=== PATIENT | female | born 1990 | race Caucasian/White ===

== ENCOUNTER 2023-02-06 15:43 | Inpatient (IN) | payer MEDICAID ==
[~2023-02-06] VITALS: Ht 162.6 cm; Wt 84.8 kg
[2023-02-06 16:13] VITALS: BP 125/71; PULSE 73; RESP 18; TEMP 98.2; O2SAT 99
[2023-02-06 16:36] VITALS: O2SAT 99
[2023-02-06] MEDS ORDERED: MORPHINE SULFATE 4 MG/ML SYR IVP ONE ×2 (17:40→22:40)
[2023-02-06 18:24] LABS: BASOPHILS % (AUTO) 0.5 % (0.0-2.0); EOSINOPHILS # (AUTO) 0.1 K/uL (0-0.4); EOSINOPHILS % (AUTO) 1.2 % (0.0-4.0); HEMATOCRIT 36.7 % (36-48); HEMOGLOBIN 12.2 g/dL (12.0-16.0); LYMPHOCYTES # (AUTO) 1.6 K/uL (2.5-16.5); LYMPHOCYTES % (AUTO) 27.5 % (20.5-51.1); MEAN CORPUSCULAR HEMOGLOBIN 27 pg (27-31); MEAN CORPUSCULAR HGB CONC 33 g/dL (33-37); MEAN CORPUSCULAR VOLUME 82.1 fL (80-94); MONOCYTES # (AUTO) 0.5 K/uL (0.8-1.0); MONOCYTES % (AUTO) 7.9 % (1.7-9.3); NEUTROPHILS # (AUTO) 3.7 K/uL (1.8-7.7); NEUTROPHILS % (AUTO) 62.9 % (42.2-75.2); PLATELET COUNT (AUTO) 273 K/uL (140-450); RED BLOOD CELL COUNT(AUTO) 4.47 MIL/uL (4.20-5.40); RED CELL DISTRIBUTION WIDTH 13.8 % (11.6-13.7); WHITE BLOOD COUNT (AUTO) 5.9 K/uL (4.8-10.8)
[2023-02-06 18:38] LABS: ANION GAP 14.3 (8-16); CALCIUM 8.3 mg/dL (8.5-10.1); CARBON DIOXIDE 25.6 mmol/L (21-32); CREATININE 0.8 mg/dL (0.6-1.3); POTASSIUM 3.9 mmol/L (3.5-5.1); TOTAL BILIRUBIN 0.2 mg/dL (0.0-1.0); TOTAL PROTEIN, SERUM 6.9 g/dL (6.4-8.2)
[2023-02-06 18:39] VITALS: O2SAT 99
[2023-02-06 18:42] LABS: LACTIC ACID 0.9 mmol/L (0.4-2.0)
[2023-02-06 20:59] VITALS: O2SAT 99
[2023-02-06] MEDS ORDERED: KETOROLAC 30 MG/ML VIAL IVP ONE (22:40)
[2023-02-06] MEDS ORDERED: ONDANSETRON 4 MG/2 ML VIAL IVP ONE (23:20)
[2023-02-06] MEDS ORDERED: VANCOMYCIN PER PHARMACY MC PRN (23:40)
[2023-02-07 01:15] VITALS: BP 115/70; PULSE 69; RESP 18; TEMP 96.8; O2SAT 96
[2023-02-07 04:00] VITALS: BP 95/44; PULSE 110; PULSE 64; RESP 18; TEMP 96.8; O2SAT 98
[2023-02-07] MEDS: PIPERACILLIN/TAZOBACTAM 4.5 GM in DEXTROSE 5% 100 ML IV SCH ×3 (05:00→21:07)
[2023-02-07] MEDS: PIPERACILLIN/TAZOBACTAM 4.5 GM VIAL IV ONE ×2 (05:31→05:45)
[2023-02-07 07:56] VITALS: PULSE 70; RESP 20; O2SAT 100
[2023-02-07 08:00] VITALS: BP 138/44; PULSE 54; RESP 18; TEMP 97.3; O2SAT 96
[2023-02-07] MEDS: MORPHINE SULFATE 4 MG/ML SYR IVP PRN ×2 (08:41→16:09)
[2023-02-07] MEDS: VANCOMYCIN 1.25GM PREMIX 250 ML IV SCH ×2 (08:42→22:36)
[2023-02-07 08:52] LABS: INR 1.01 (0.8-1.2); PROTHROMBIN TIME 10.6 secs (10.8-13.4)
[2023-02-07] MEDS ORDERED: VANCOMYCIN 1GM/DEXT 5% PREMIX 200 ML IV SCH (09:00)
[2023-02-07 16:00] VITALS: BP 107/78; PULSE 67; RESP 18; TEMP 97.6; O2SAT 97
[2023-02-07 20:00] VITALS: PULSE 75; RESP 18; O2SAT 98
[2023-02-08] VITALS: BP 117/72; PULSE 75; RESP 18; TEMP 97.4; O2SAT 98
[2023-02-08] MEDS: PIPERACILLIN/TAZOBACTAM 4.5 GM in DEXTROSE 5% 100 ML IV SCH ×3 (04:58→20:27)
[2023-02-08] MEDS: ONDANSETRON 4 MG/2 ML VIAL IVP PRN ×2 (05:05→23:58)
[2023-02-08] MEDS: MORPHINE SULFATE 4 MG/ML SYR IVP PRN ×3 (05:06→23:59)
[2023-02-08 08:00] VITALS: BP 118/53; PULSE 71; RESP 18; TEMP 97.6; O2SAT 98
[2023-02-08 08:25] VITALS: PULSE 75; RESP 18; O2SAT 98
[2023-02-08] MEDS: VANCOMYCIN 1.25GM PREMIX 250 ML IV SCH ×2 (09:14→21:39)
[2023-02-08 16:00] VITALS: BP 112/55; PULSE 78; RESP 18; TEMP 97.6; O2SAT 98
[2023-02-08 20:00] VITALS: PULSE 67; RESP 18; O2SAT 97
[2023-02-09] VITALS: BP 108/51; PULSE 67; RESP 18; TEMP 97.9; O2SAT 97
[2023-02-09] MEDS ORDERED: ACET-8905 PO (00:23)
[2023-02-09] MEDS: PIPERACILLIN/TAZOBACTAM 4.5 GM in DEXTROSE 5% 100 ML IV SCH ×3 (04:51→20:26)
[2023-02-09 08:00] VITALS: BP 100/64; PULSE 71; RESP 18; TEMP 97.3; O2SAT 99
[2023-02-09 08:46] LABS: ANION GAP 9.7 (8-16); CALCIUM 7.9 mg/dL (8.5-10.1); CREATININE 0.8 mg/dL (0.6-1.3); POTASSIUM 3.7 mmol/L (3.5-5.1)
[2023-02-09] MEDS: VANCOMYCIN 1.25GM PREMIX 250 ML IV SCH ×2 (09:29→21:21)
[2023-02-09] MEDS: MORPHINE SULFATE 4 MG/ML SYR IVP PRN ×3 (09:29→20:25)
[2023-02-09] MEDS: ONDANSETRON 4 MG/2 ML VIAL IVP PRN (09:31)
[2023-02-09 16:00] VITALS: BP 118/61; PULSE 73; RESP 18; TEMP 97.5
[2023-02-09 20:00] VITALS: BP 120/64; PULSE 71; PULSE 72; RESP 18; TEMP 98; O2SAT 99
[2023-02-09 22:23] VITALS: BP 122/69; PULSE 76; RESP 18; TEMP 97
== END 2023-02-10 00:10 | disposition home or self-care (01) | DRG 813 ==
LOC: MED 15:43 → MTU 02-07 00:18
PROVIDERS: ADMIT Surgery; ATTEND Surgery
PROC: 0W9J3ZZ Drainage of Pelvic Cavity, Percutaneous Approach (ICD-10-PCS; principal; 2023-02-07)
DX: L76.34 Postprocedural seroma of skin and subcutaneous tissue following other procedure (principal); Y83.8 Other surgical procedures as the cause of abnormal reaction of the patient, or of later complication, without mention of misadventure at the time of the procedure; Y92.89 Other specified places as the place of occurrence of the external cause
CPT/HCPCS: 36415; 75989; 80048; 80053; 80202; 83605; 85025; 85610; 85730; 87040; 87070; 87075; 87081; 87205; 96374; 96375; 96376; 99285; J1885; J2270; J2405; J2543; J3370; J3372; J7060; Q0092; Q9967